=== PATIENT | male | born 1995 | race African-American/Black ===

== ENCOUNTER 2022-06-11 14:40 | Outpatient (CLI) | payer OTHER | END 2022-06-11 14:41 | disposition critical access hospital (66) | LOC: EMS 14:40 | DX: S51.812A Laceration without foreign body of left forearm, initial encounter (principal); X78.1XXA Intentional self-harm by knife, initial encounter | CPT/HCPCS: A0425; A0429 ==

== ENCOUNTER 2022-06-11 15:01 | Emergency (ER) | payer OTHER ==
[2022-06-11 15:34] LABS: BASOPHILS % (AUTO) 0.3 %; EOSINOPHILS % (AUTO) 0.3 %; HCT - HEMATOCRIT 42.9 % (42.0-52.0); HGB - HEMOGLOBIN 15.3 g/dL (14.0-18.0); LYMPHOCYTES # (AUTO) 1.9 10^3/uL (1.5-3.5); LYMPHOCYTES % (AUTO) 19.6 %; MEAN CORPUSCULAR HEMOGLOBIN 32.2 pg (27.0-31.0); MEAN CORPUSCULAR HGB CONC 35.7 g/dL (32.0-36.0); MEAN CORPUSCULAR VOLUME 90.3 fL (80.0-94.0); MEAN PLATELET VOLUME 8.6 fL (7.4-11.4); MONOCYTES # (AUTO) 0.5 10^3/uL (0.0-1.0); MONOCYTES % (AUTO) 5.5 %; NEUTROPHILS # (AUTO) 7.2 10^3/uL (1.5-6.6); PLT - PLATELET COUNT 316 10^3/uL (130-450); RED BLOOD COUNT 4.75 10^6/uL (4.70-6.10); RED CELL DISTRIBUTION WIDTH 13.8 % (12.0-15.0); WHITE BLOOD COUNT 9.7 x10^3/uL (4.8-10.8)
--- NOTE | 2022-06-11 15:41 | ED Physician Documentation ---
PD HPI MHE - Stated complaint Stated Complaint: DEPRESSION/CUTS ON FOREARM - Chief complaint Chief Complaint: MHE - History obtained from History obtained from: Patient, EMS - History of Present Illness Primary symptom: Self harm - cut Timing - onset: Today Pain level max: 0 Pain level now: 0 Contributing factors: No: Family, Sig other, Work, School, Money, Legal, Substance abuse - ETOH, Substance abuse - drugs, Off meds Recently seen: Not recently seen - Additional information Additional information: 27-year-old male presents to the emergency department Stating that he had an argument with his girlfriend and then cut his left wrist with a steak knife. He states he is not suicidal or homicidal. Has never attempted suicide. He states he "wants to talk to someone". Nothing makes it better or worse. He is currently in treatment for depression. Review of Systems Ten Systems: 10 systems reviewed and negative Constitutional: denies: Fever Respiratory: denies: Cough GI: denies: Vomiting, Diarrhea Skin: denies: Rash Musculoskeletal: denies: Neck pain, Back pain Neurologic: denies: Headache PD PAST MEDICAL HISTORY - Past Medical History Past Medical History: Yes Psych: Depression - Living Situation Living Arrangement: reports: At home - Social History Does the pt have substance abuse?: No PD ED PE NORMAL - Vitals Vital signs reviewed: Yes - General General: Alert and oriented X 3, No acute distress - HEENT HEENT: Moist mucous membranes - Neck Neck: Supple, no meningeal sign - Cardiac Cardiac: RRR - Respiratory Respiratory: No respiratory distress, Clear bilaterally - Abdomen Abdomen: Soft, Non tender, Non distended - Derm Derm: Warm and dry - Extremities Extremities: Other (Very superficial laceration to the volar aspect of the left wrist. Approximately 3 cm in length. NVI) - Neuro Neuro: Alert and oriented X 3 - Psych Psych: Normal mood, Normal affect Results - Vitals Vitals: Vital Signs - 24 hr 06/11/22 15:21 Temperature 36.7 C Heart Rate 92 Respiratory 16 Rate Blood Pressure 125/78 O2 Saturation 97 Oxygen O2 Source Room air - Labs Labs: Laboratory Tests 06/11/22 06/11/22 06/11/22 15:30 15:30 15:30 WBC 9.7 RBC 4.75 Hgb 15.3 Hct 42.9 MCV 90.3 MCH 32.2 H MCHC 35.7 RDW 13.8 Plt Count 316 MPV 8.6 Neut # (Auto) 7.2 H Lymph # (Auto) 1.9 [place] # (Auto) 0.5 Eos # (Auto) 0.0 Baso # (Auto) 0.0 Absolute Nucleated RBC 0.00 Nucleated RBC % 0.0 Sodium 138 Potassium 3.7 Chloride 104 Carbon Dioxide 24 Anion Gap 10.0 BUN 8 Creatinine 0.8 Estimated GFR (MDRD) 118 Glucose 100 Calcium 9.5 Total Bilirubin 0.8 AST 22 ALT 30 Alkaline Phosphatase 60 Total Protein 8.0 Albumin 4.4 Globulin 3.6 Albumin/Globulin Ratio 1.2 Lipase 22 TSH 3.21 Salicylates < 6.0 Acetaminophen < 10 L Ethyl Alcohol 18.2 PD MEDICAL DECISION MAKING - ED course Complexity details: reviewed results, re-evaluated patient, considered differential, d/w patient ED course: No acute findings on laboratory testing. Wound was cleansed and bandaged. Social work is not available currently. Offered telepsychiatry, patient does not want to wait for this. He states that he feels better after being in the emergency department for a while. He is forward thinking and goal oriented. He is able to contract for safety and feels safe at home tonight. His plan is to [place] PC[place] Patient was given information regarding the crisis line and encouraged to return if he worsens or starts to feel like he is going to harm himself again. Patient counseled regarding signs and symptoms for which I believe and urgent re- evaluation would be necessary. Patient with good understanding of and agreement to plan and is comfortable going home at this time This document was made in part using voice recognition software. While efforts are made to proofread this document, sound alike and grammatical errors may occur. Departure - Departure Disposition: 01 Home, Self Care Clinical Impression: Abrasion of wrist Qualifiers: Encounter type: initial encounter Laterality: left Qualified Code(s): S60.812A - Abrasion of left wrist, initial encounter Depression Qualifiers: Depression Type: unspecified Qualified Code(s): F32.A - Depression, unspecified Condition: Good Instructions: ED Depression Follow-Up: IGNACIO WOLF MD [Primary Care Provider] - Comments: [place] as [place] discussed. Please return if you worsen including thoughts of harming yourself or suicidal ideation. You can also contact the crisis line if you would like to talk to somebody. Crisis Line and is available to talk to someone [email or web address] is also available to chat with someone online if you prefer. There are also many resources on this website and apps for your phone to help with your mental health You can also text the word START to [phone] to chat with someome via text. Discharge Date/Time: 06/11/22 17:08
[2022-06-11 15:49] LABS: ACETAMINOPHEN < 10 ug/mL (10-30); ALBUMIN 4.4 g/dL (3.2-5.5); ALBUMIN/GLOBULIN RATIO 1.2 (1.0-2.2); ALKALINE PHOSPHATASE 60 IU/L (42-121); ALT ALANINE AMINOTRANSFERASE 30 IU/L (10-60); AST ASPARTATE AMINOTRANSFERASE 22 IU/L (10-42); BILIRUBIN,TOTAL 0.8 mg/dL (0.2-1.0); BUN - BLOOD UREA NITROGEN 8 mg/dL (6-20); CALCIUM 9.5 mg/dL (8.5-10.3); CARBON DIOXIDE - CO2 24 mmol/L (21-32); CHLORIDE 104 mmol/L (101-111); CREATININE 0.8 mg/dL (0.6-1.2); ETOH - ETHANOL 18.2 mg/dL; GFR - MDRD 118 (>89); GLUCOSE 100 mg/dL (70-100); LIPASE 22 U/L (22-51); POTASSIUM 3.7 mmol/L (3.5-5.0); SALICYLATE < 6.0 mg/dL; SODIUM 138 mmol/L (135-145)
[2022-06-11 15:54] VITALS: BP 125/78
== END 2022-06-11 17:08 | disposition home or self-care (01) ==
LOC: ED 15:01
DX: S61.512A Laceration without foreign body of left wrist, initial encounter (principal); W26.0XXA Contact with knife, initial encounter
CPT/HCPCS: 36415; 80053; 80307; 80320; 80329; 83690; 84443; 85025; 99283

== ENCOUNTER 2023-12-31 09:19 | Outpatient (CLI) | payer OTHER | END 2023-12-31 23:59 | disposition critical access hospital (66) | LOC: EMS 09:19 | DX: S51.811A Laceration without foreign body of right forearm, initial encounter (principal); X78.8XXA Intentional self-harm by other sharp object, initial encounter; Y92.009 Unspecified place in unspecified non-institutional (private) residence as the place of occurrence of the external cause; F10.90 Alcohol use, unspecified, uncomplicated | CPT/HCPCS: A0425; A0429 ==

== ENCOUNTER 2023-12-31 09:22 | Inpatient (IN) | payer OTHER ==
[2023-12-31 09:48] LABS: BASOPHILS % (AUTO) 0.2 %; EOSINOPHILS # (AUTO) 0.1 10^3/uL (0.0-0.7); EOSINOPHILS % (AUTO) 0.7 %; HGB - HEMOGLOBIN 14.3 g/dL (14.0-18.0); LYMPHOCYTES # (AUTO) 1.9 10^3/uL (1.5-3.5); MEAN CORPUSCULAR HEMOGLOBIN 32.4 pg (27.0-31.0); MEAN CORPUSCULAR HGB CONC 34.9 g/dL (32.0-36.0); MEAN CORPUSCULAR VOLUME 92.8 fL (80.0-94.0); MEAN PLATELET VOLUME 9.2 fL (7.4-11.4); MONOCYTES # (AUTO) 0.5 10^3/uL (0.0-1.0); MONOCYTES % (AUTO) 6.1 %; NEUTROPHILS % (AUTO) 69.8 %; PLT - PLATELET COUNT 307 10^3/uL (130-450); RED BLOOD COUNT 4.42 10^6/uL (4.70-6.10); RED CELL DISTRIBUTION WIDTH 12.7 % (12.0-15.0); WHITE BLOOD COUNT 8.5 x10^3/uL (4.8-10.8)
[2023-12-31 10:08] LABS: ALBUMIN 4.1 g/dL (3.2-5.5); ALBUMIN/GLOBULIN RATIO 1.5 (1.0-2.2); ALKALINE PHOSPHATASE 45 IU/L (42-121); ALT ALANINE AMINOTRANSFERASE 19 IU/L (10-60); AST ASPARTATE AMINOTRANSFERASE 21 IU/L (10-42); BILIRUBIN,TOTAL 0.4 mg/dL (0.2-1.0); BUN - BLOOD UREA NITROGEN 7 mg/dL (6-20); CALCIUM 9.3 mg/dL (8.5-10.3); CARBON DIOXIDE - CO2 23 mmol/L (21-32); CHLORIDE 97 mmol/L (101-111); CK- CREATINE KINASE 381 IU/L (30-223); CREATININE 1.2 mg/dL (0.6-1.3); ETOH - ETHANOL 232.9 mg/dL; GFR - MDRD 89 (>89); GLUCOSE 99 mg/dL (74-104); MAGNESIUM 1.7 mg/dL (1.7-2.3); POTASSIUM 3.3 mmol/L (3.5-4.5); SODIUM 132 mmol/L (135-145); TOTAL PROTEIN 6.9 g/dL (6.4-8.9)
[2023-12-31 10:13] LABS: ACETAMINOPHEN < 0.1 ug/mL; LIPASE < 10 U/L (11-82); SALICYLATE < 1.5 mg/dL
[2023-12-31 10:18] LABS: THYROID STIMULATING HORMONE 1.33 uIU/mL (0.34-5.60)
[2023-12-31] MEDS: SODIUM CHLORIDE 0.9% 1,000 ML IV STA ×2 (11:27→13:33)
[2023-12-31] MEDS: LIDOCAINE 1%-EPI 1:100000 20 ML MDV SUBQ STA (11:28)
[2023-12-31 11:52] LABS: HCT - HEMATOCRIT 39.4 % (42.0-52.0)
[2023-12-31 13:00] LABS: BILIRUBIN,URINE NEGATIVE (NEGATIVE); CLARITY,URINE CLEAR (CLEAR); GLUCOSE, URINE (UA) NEGATIVE (NEGATIVE); KETONES,URINE (UA) NEGATIVE (NEGATIVE); LEUKOCYTE ESTERASE, URINE NEGATIVE (NEGATIVE); NITRITE,URINE NEGATIVE (NEGATIVE); OCCULT BLOOD,URINE NEGATIVE (NEGATIVE); PROTEIN,URINE NEGATIVE (NEGATIVE); UROBILINOGEN,URINE 0.2 (NORMAL) E.U./dL (NORMAL)
--- NOTE | 2023-12-31 13:11 | ED Physician Documentation ---
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 Patient reportedly cut his right arm with a steak knife. He also reports drinking a lot of whiskey last night. He also intentionally ingested a propranolol 20 mg tablets at 3 AM today and it took approximately 59 tablets. 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 EMS found the patient in his Bed covered in blood. EMS removed the IV he had started and placed a new 1. Patient does not want to talk much about recent stressors but on repeat evaluation he does report from his recently and also not enjoying being in the [employer] or living here in [place]. He does have family back in [place]. He also has been seeing a counselor through the [employer] base. Review of Systems Cardiac: denies: Chest pain / pressure Respiratory: denies: Dyspnea GI: denies: Abdominal Pain Skin: reports: Laceration (s) PD PAST MEDICAL HISTORY - Past Medical History Past Medical History: Yes Psych: Depression, Anxiety - Past Surgical History Past Surgical History: No - Present Medications Home Medications: Ambulatory Orders Medication Instructions Recorded Confirmed Fluoxetine HCl [Prozac] 40 mg PO DAILY 12/31/23 12/31/23 Ondansetron Odt [Zofran Odt] 4 mg TL Q6H PRN 12/31/23 12/31/23 Propranolol HCl 20 mg PO DAILY 12/31/23 12/31/23 buPROPion HCL [Bupropion HCl] 300 mg PO DAILY 12/31/23 12/31/23 - Allergies Allergies/Adverse Reactions: Allergies Allergy/AdvReac Type Severity Reaction Status Date / Time No Known Drug Allergies Allergy Verified 12/31/23 09:29 - Social History Does the pt smoke?: No Smoking Status: Never smoker Does the pt drink ETOH?: Yes Does the pt have substance abuse?: No - Immunizations Immunizations are current?: Yes PD ED PE NORMAL - General General: Alert and oriented X 3, No acute distress, Well developed/nourished - HEENT HEENT: Atraumatic - Neck Neck: Supple, no meningeal sign - Cardiac Cardiac: RRR, Strong equal pulses - Respiratory Respiratory: No respiratory distress, Clear bilaterally - Abdomen Abdomen: Normal bowel sounds, Soft, Non tender, Non distended - Derm Derm: Warm and dry - Extremities Extremities: Other (10 cm laceration To right AC, deep, no signs of tendon injury, patient able to fully extend, flex, pronate and supinate with right arm, motor and sensation intact distally, good cap refill in all digits, no active bleeding) - Neuro Neuro: Alert and oriented X 3, No motor deficit, No sensory deficit, Normal speech - Psych Psych: No: Normal mood (Depressed, soft-spoken) Results - Vitals Vitals: Vital Signs - 24 hr 12/31/23 12/31/23 12/31/23 09:29 10:00 10:22 Temperature 36 C L Heart Rate 65 76 79 Respiratory 28 H 18 19 Rate Blood Pressure 108/74 131/108 H 117/82 H O2 Saturation 96 100 100 12/31/23 12/31/23 12/31/23 10:30 10:45 11:00 Temperature Heart Rate 74 72 72 Respiratory 19 17 16 Rate Blood Pressure 109/77 95/67 92/62 O2 Saturation 100 96 96 12/31/23 12/31/23 12/31/23 11:17 11:30 11:47 Temperature Heart Rate 78 80 79 Respiratory 14 20 16 Rate Blood Pressure 91/55 L 87/69 L 109/88 H O2 Saturation 95 97 99 12/31/23 12/31/23 12:12 12:42 Temperature 36.8 C Heart Rate 75 82 Respiratory 16 15 Rate Blood Pressure 125/79 103/86 H O2 Saturation 100 100 Oxygen O2 Source Room air - EKG (time done) 1011 EKG releavant findings:: EKG personally interpreted by author of this note. Relevant findings are: Rate 74, normal sinus rhythm, no STEMI, ST elevations in anterior lateral leads are likely benign early repolarization, T wave inversions in lead III, QTc 433, no prior for comparison - Labs Labs: Laboratory Tests 12/31/23 12/31/23 12/31/23 09:45 09:45 09:55 WBC 8.5 RBC 4.42 L Hgb 14.3 Hct 41.0 L MCV 92.8 MCH 32.4 H MCHC 34.9 RDW 12.7 Plt Count 307 MPV 9.2 Neut # (Auto) 6.0 Lymph # (Auto) 1.9 [place] # (Auto) 0.5 Eos # (Auto) 0.1 Baso # (Auto) 0.0 Absolute Nucleated RBC 0.00 Nucleated RBC % 0.0 Sodium 132 L Potassium 3.3 L Chloride 97 L Carbon Dioxide 23 Anion Gap 12.0 BUN 7 Creatinine 1.2 Estimated GFR (MDRD) 89 Glucose 99 Calcium 9.3 Magnesium 1.7 Total Bilirubin 0.4 AST 21 ALT 19 Alkaline Phosphatase 45 Total Creatine Kinase 381 H Total Protein 6.9 Albumin 4.1 Globulin 2.8 Albumin/Globulin Ratio 1.5 Lipase < 10 L TSH 1.33 Urine Color Urine Clarity Urine pH Ur Specific [place] Urine Protein Urine Glucose (UA) Urine Ketones Urine Occult Blood Urine Nitrite Urine Bilirubin Urine Urobilinogen Ur Leukocyte Esterase Ur Microscopic Review Urine Culture Comments Salicylates < 1.5 Urine Opiates Screen Ur Buprenorphine Scrn Ur Oxycodone Screen Urine Methadone Screen Acetaminophen < 0.1 Ur Barbiturates Screen Ur Tricyclics Screen Ur Phencyclidine Scrn Ur Amphetamine Screen U Methamphetamines Scrn U Benzodiazepines Scrn Urine Cocaine Screen U Cannabinoids Screen Ur Drug Screen Comment Ethyl Alcohol 232.9 SARS-CoV-2 (PCR) NOT DETECTED 12/31/23 12/31/23 11:45 12:45 WBC RBC Hgb 14.0 Hct 39.4 L MCV MCH MCHC RDW Plt Count MPV Neut # (Auto) Lymph # (Auto) [place] # (Auto) Eos # (Auto) Baso # (Auto) Absolute Nucleated RBC Nucleated RBC % Sodium Potassium Chloride Carbon Dioxide Anion Gap BUN Creatinine Estimated GFR (MDRD) Glucose Calcium Magnesium Total Bilirubin AST ALT Alkaline Phosphatase Total Creatine Kinase Total Protein Albumin Globulin Albumin/Globulin Ratio Lipase TSH Urine Color YELLOW Urine Clarity CLEAR Urine pH 6.0 Ur Specific [place] <=1.005 Urine Protein NEGATIVE Urine Glucose (UA) NEGATIVE Urine Ketones NEGATIVE Urine Occult Blood NEGATIVE Urine Nitrite NEGATIVE Urine Bilirubin NEGATIVE Urine Urobilinogen 0.2 (NORMAL) Ur Leukocyte Esterase NEGATIVE Ur Microscopic Review NOT INDICATED Urine Culture Comments NOT INDICATED Salicylates Urine Opiates Screen NEGATIVE Ur Buprenorphine Scrn NEGATIVE Ur Oxycodone Screen NEGATIVE Urine Methadone Screen NEGATIVE Acetaminophen Ur Barbiturates Screen NEGATIVE Ur Tricyclics Screen NEGATIVE Ur Phencyclidine Scrn NEGATIVE Ur Amphetamine Screen NEGATIVE U Methamphetamines Scrn NEGATIVE U Benzodiazepines Scrn NEGATIVE Urine Cocaine Screen NEGATIVE U Cannabinoids Screen NEGATIVE Ur Drug Screen Comment CUTOFF CONC BELOW: Ethyl Alcohol SARS-CoV-2 (PCR) Procedures - Laceration (location) R arm Length in cm: 10 Wound type: Linear Neurovascular status: Sensory intact, Motor intact, Vascular intact Tendon involvement: Tendon intact Anesthesia: Lidocaine 1% with epi Wound preparation: Hibiclens, Irrigated copiously NS Deep layer closure: Vicryl, size #-0 - enter number (4-0), # sutures - enter number (10) Skin layer closure: Interrupted, Size #-0 - enter number (3-0 Ethilon), Sutures - enter # (16) Other: Patient tolerated well, No complications, Neurovascular intact, Dressing applied, Tetanus UTD PD Medical Decision Making - ED course Complexity details: reviewed results, re-evaluated patient, d/w patient ED course: Patient is a 28-year-old male presenting for evaluation of Suicide attempt. Patient intentionally ingested a large amount of propranolol reportedly as well as injured himself with a large self-inflicted laceration to the right arm and also started his own IV in the left arm to drain the blood. On arrival patient was evaluated with mental health screening labs including EKG, CBC, chemistries, urinalysis, toxicology labs. Patient remained on the air sampling and monitoring with close check of his vital signs including heart rate and blood pressure. Large amount of time was spent in repair of right arm laceration.Over time patient's blood pressure was starting to read low with systolics being as low as in the 70s at 1 point. Patient had already received 1 L of fluids and was given a second liter of fluids. As his blood pressures were starting to drift into the 70s and 80s I do feel that he may need further monitoring before medical clearance. I discussed with Admitting hospitalist (Dr. Ceja) and he will admit patient to ICU for close monitoring. 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 Departure - Departure Disposition: 66 [facility] DC/Xfer Clinical Impression: Intentional overdose, Suicide attempt by beta rohith overdose, Laceration of right upper arm, Hypotension Condition: Fair Discharge Date/Time: 12/31/23 14:25
[2023-12-31 13:37] LABS: AMPHETAMINE SCREEN,URINE NEGATIVE (NEGATIVE); BARBITURATE SCREEN,UR NEGATIVE (NEGATIVE); BENZODIAZEPINES SCREEN, URINE NEGATIVE (NEGATIVE); BUPRENORPHINE SCREEN, URINE NEGATIVE (NEGATIVE); COCAINE SCREEN URINE NEGATIVE (NEGATIVE); METHADONE SCREEN, URINE NEGATIVE (NEGATIVE); METHAMPHETAMINES SCREEN, URINE NEGATIVE (NEGATIVE); OPIATE SCREEN, URINE NEGATIVE (NEGATIVE); OXYCODONE SCREEN, URINE NEGATIVE (NEGATIVE); THC CANNABINOID SCREEN, URINE NEGATIVE (NEGATIVE); TRICYCLIC ANTIDEPRESSANT,URINE NEGATIVE (NEGATIVE)
[2023-12-31] MEDS ORDERED: ONDANSETRON ODT 4 MG TABLET TL PRN (13:46)
[2023-12-31] MEDS ORDERED: SODIUM CHLORIDE FLUSH 0.9% 10 ML SYRINGE IVP PRN (13:46)
[2023-12-31] MEDS: IBUPROFEN 600 MG TABLET PO STA (14:12)
--- NOTE | 2023-12-31 14:12 | HISTORY & PHYSICAL EXAMINATION ---
Chief Complaint - Chief Complaint Chief Complaint: Beta rohith overdose History of Present Illness - Admitted From Admitted From:: ED - History Obtained From Records Reviewed: Yes History obtained from: Patient Exam Limitations: None - History of Present Illness HPI Comment/Other: Patient is a 28-year-old male with a past medical history of MDD/anxiety who presented to the ED after a suicide attempt. Patient drank a significant amount of whiskey last night and reportedly cut his right arm with a steak knife. He also ingested #59 20 mg propranolol tablets at 3 AM. Patient also started his own IV in his left AC which was draining blood. EMS found the patient in bed covered in blood. He reportedly has significant stressors in his life as he is from his recently and does not enjoy being in the [employer] or living in [place]. He does have family back in [place]. He sees a counselor through the [employer] base. During my evaluation patient appeared hemodynamically stable. He was mildly hypotensive but was maintaining a MAP greater than 65 on IV fluids. He denied any chest pain or shortness of breath. He was not having any lightheadedness or dizziness. Poison control was contacted and recommendations were given. He will be admitted to the ICU for monitoring over the next 24 hours. He will be placed on suicide precautions. She did not endorse any active suicidal ideation since he is sober. I did discuss alcohol use with him and he reports that he has had withdrawals in the past however no prior seizures. History - Past Medical History Psych: reports: Depression, Anxiety MRSA Hx?: No Meds/Allgy - Home Medications Home Medications: Ambulatory Orders Medication Instructions Recorded Confirmed Fluoxetine HCl [Prozac] 40 mg PO DAILY 12/31/23 12/31/23 Ondansetron Odt [Zofran Odt] 4 mg TL Q6H PRN 12/31/23 12/31/23 Propranolol HCl 20 mg PO DAILY 12/31/23 12/31/23 buPROPion HCL [Bupropion HCl] 300 mg PO DAILY 12/31/23 12/31/23 - Allergies Allergies/Adverse Reactions: Allergies Allergy/AdvReac Type Severity Reaction Status Date / Time No Known Drug Allergies Allergy Verified 12/31/23 09:29 Review of Systems - Psychiatric Psychiatric: denies: Suicidal, Homicidal - All Other Systems All Other Systems: reports: Reviewed and negative Exam - Vital Signs Reviewed Vital Signs: Yes Vital Signs: Vital Signs x48h Temp Pulse Resp BP Pulse Ox 12/31/23 12:42 36.8 C 82 15 103/86 H 100 12/31/23 12:12 75 16 125/79 100 12/31/23 11:47 79 16 109/88 H 99 12/31/23 11:30 80 20 87/69 L 97 12/31/23 11:17 78 14 91/55 L 95 12/31/23 11:00 72 16 92/62 96 12/31/23 10:45 72 17 95/67 96 12/31/23 10:30 74 19 109/77 100 12/31/23 10:22 79 19 117/82 H 100 12/31/23 10:00 76 18 131/108 H 100 12/31/23 09:29 36 C L 65 28 H 108/74 96 - Physical Exam General Appearance: positive: No acute distress, Alert Respiratory: positive: Chest non-tender, No respiratory distress, Breath sounds nml Cardiovascular: positive: Regular rate & rhythm, No murmur, No gallop Abdomen: positive: Non-tender, No organomegaly, Nml bowel sounds, No distention Skin: positive: Color nml, No rash, Warm, Dry Extremities: positive: Non-tender, Full ROM, Nml appearance Neurologic/Psychiatric: positive: Oriented x3, Mood/affect nml Conclusion/Plan - Problem List (1) Suicide attempt by beta rohith overdose Conclusion/Plan: -- Reportedly ingested number #59 20 mg propranolol at 3 AM.Poison control has been contacted and did make recommendations. --Patient will be monitored for hemodynamic collapse in the ICU. -- He has not yet required any glucagon, atropine, vasopressors. Patient is currently on normal saline. -- He was placed on suicide precautions. -- Anticipate discharge tomorrow if he remains hemodynamically stable to the care of psychiatry. (2) Laceration of right upper arm Conclusion/Plan: -- Laceration was repaired in the ED. - Lab Results Fish Bones: 12/31/23 11:45 12/31/23 09:45
[2023-12-31] MEDS: HYDROcod/ACETAM 5/325 MG TABLET PO STA (15:37)
[2023-12-31] MEDS: SODIUM CHLORIDE 0.9% 1,000 ML IV SCH (15:37)
[2023-12-31] MEDS: SODIUM CHLORIDE FLUSH 0.9% 10 ML SYRINGE IVP SCH (15:38)
[2023-12-31] MEDS: IBUPROFEN 800 MG TABLET PO PRN (20:50)
[2023-12-31] MEDS: FAMOTIDINE 20 MG TABLET PO SCH (20:50)
[2023-12-31] MEDS: POTASSIUM CHLORIDE 20 MEQ TABLET PO SCH (20:50)
[2023-12-31] MEDS: MAGNESIUM OXIDE 400 MG TABLET PO ONE (20:51)
[2024-01-01 04:29] LABS: BASOPHILS % (AUTO) 0.5 %; EOSINOPHILS # (AUTO) 0.1 10^3/uL (0.0-0.7); EOSINOPHILS % (AUTO) 0.7 %; HCT - HEMATOCRIT 29.2 % (42.0-52.0); HGB - HEMOGLOBIN 10.3 g/dL (14.0-18.0); LYMPHOCYTES # (AUTO) 1.7 10^3/uL (1.5-3.5); LYMPHOCYTES % (AUTO) 20.5 %; MEAN CORPUSCULAR HEMOGLOBIN 33.1 pg (27.0-31.0); MEAN CORPUSCULAR HGB CONC 35.3 g/dL (32.0-36.0); MEAN CORPUSCULAR VOLUME 93.9 fL (80.0-94.0); MONOCYTES # (AUTO) 0.9 10^3/uL (0.0-1.0); NEUTROPHILS # (AUTO) 5.5 10^3/uL (1.5-6.6); NEUTROPHILS % (AUTO) 66.6 %; PLT - PLATELET COUNT 197 10^3/uL (130-450); RED BLOOD COUNT 3.11 10^6/uL (4.70-6.10); RED CELL DISTRIBUTION WIDTH 12.9 % (12.0-15.0); WHITE BLOOD COUNT 8.3 x10^3/uL (4.8-10.8)
[2024-01-01 04:30] LABS: CALCIUM, IONIZED 1.14 mmol/L (1.15-1.33); VBG PH 7.362 (7.31-7.41)
[2024-01-01 04:49] LABS: CALCIUM 8.5 mg/dL (8.5-10.3); CREATININE 0.9 mg/dL (0.6-1.3); MAGNESIUM 1.7 mg/dL (1.7-2.3); PHOSPHORUS 3.3 mg/dL (2.5-5.0); POTASSIUM 3.6 mmol/L (3.5-4.5)
[2024-01-01] MEDS: MAGNESIUM OXIDE 400 MG TABLET PO ONE ×2 (07:06→12:06)
[2024-01-01] MEDS: POTASSIUM CHLORIDE 20 MEQ TABLET PO ONE ×2 (07:06→12:06)
--- NOTE | 2024-01-01 11:21 | PROVIDER PROGRESS NOTE ---
Assessment/Plan - Problem List (1) Suicide attempt by beta rohith overdose Assessment/Plan: (1) Suicide attempt by beta rohith overdose Conclusion/Plan: -- Reportedly ingested number #59 20 mg propranolol at 3 AM.Poison control has been contacted and did make recommendations. --Patient will be monitored for hemodynamic collapse in the ICU. -- He has not yet required any glucagon, atropine, vasopressors. -- He was placed on suicide precautions. -- BP remains low but stable today. Will continue to monitor. --EKGs have shown normal QRS. (2) Laceration of right upper arm Conclusion/Plan: -- Laceration was repaired in the ED. Dispo: Continue to monitor BP and HR in the ICU. Once stable, he can be discharged to [facility]. - Current Meds Current Meds: Current Medications Generic Name Dose Route Start Last Admin Trade Name Freq PRN Reason Stop Dose Admin Famotidine 20 mg 12/31/23 21:00 01/01/24 08:12 Famotidine 20 Mg Tablet PO 20 mg BID CHARLEEN Administration Ibuprofen 800 mg 12/31/23 15:17 01/01/24 08:13 Ibuprofen 800 Mg Tablet PO 800 mg TID PRN Administration PAIN 1-4 Sodium Chloride 10 ml 12/31/23 17:00 01/01/24 08:14 Sodium Chloride Flush 0.9% 10 Ml Syringe IVP 10 ml 0100,0900,1700 CHARLEEN Administration - Lab Result Fish Bone Diagrams: 01/01/24 04:18 01/01/24 04:18 - Additional Planning My Orders: My Active Orders 12/31/23 13:46 Activity Orders (ICU) [RC] Q2HR Daily Weight [RC] 0600 IO [RC] Q1HR Initiate Bowel Care Protocol [RC] QSHIFT Initiate ICU Electrolyte Prot. [RC] .protocol Initiate Line Care Protocol [RC] .protocol Initiate Personal Care Protoco [RC] .protocol Initiate Progressive Mobility Protocol [RC] 0800,1999 Ondansetron Odt [Zofran Odt] 4 mg TL Q6HR PRN Sodium Chloride Flush 0.9% [Normal Saline Flush 0.9%] 10 ml IVP PRN PRN Code Status [OTHERS] Routine Condition of Patient [OTHERS] Routine DVT Prophylaxis [OTHERS] Routine 12/31/23 13:51 Telemetry- [RC] Q4HR 12/31/23 13:52 Social Work Consult [CONS] Routine Suicide/MHE Safety Behavior Observation Q2H Suicide/MHE Safety Environmental Check [id number],Q15MX1,Q30MX1,[id number] 12/31/23 15:17 Ibuprofen [Motrin] 800 mg PO TID PRN 12/31/23 17:00 Sodium Chloride Flush 0.9% [Normal Saline Flush 0.9%] 10 ml IVP 0100,0900,1700 12/31/23 21:00 Famotidine [Pepcid] 20 mg PO BID 01/01/24 11:01 MAGNESIUM [CHEM] Timed POTASSIUM [CHEM] Timed 01/02/24 05:00 MAGNESIUM [CHEM] DAILYLAB Subjective - Subjective Patient Reports: Resting Comfortably, No Complaints Objective Vital Signs: Vital Signs - 24 hr 12/31/23 12/31/23 12/31/23 11:30 11:47 12:12 Temperature Heart Rate 80 79 75 Heart Rate [ Monitoring electrodes] Respiratory 20 16 16 Rate Blood Pressure 87/69 L 109/88 H 125/79 Blood Pressure [Left Brachial artery] O2 Saturation 97 99 100 12/31/23 12/31/23 12/31/23 12:42 14:26 16:00 Temperature 36.8 C 37.3 C Heart Rate 82 Heart Rate [ 81 83 Monitoring electrodes] Respiratory 15 25 H 19 Rate Blood Pressure 103/86 H Blood Pressure 126/106 H 95/50 L [Left Brachial artery] O2 Saturation 100 98 97 12/31/23 12/31/23 12/31/23 16:02 17:00 18:00 Temperature 37.0 C Heart Rate Heart Rate [ 79 75 78 Monitoring electrodes] Respiratory 14 16 12 Rate Blood Pressure Blood Pressure 83/73 L 93/50 L 96/66 [Left Brachial artery] O2 Saturation 96 98 97 12/31/23 12/31/23 12/31/23 19:00 20:00 21:00 Temperature 36.8 C Heart Rate Heart Rate [ 83 77 78 Monitoring electrodes] Respiratory 21 23 20 Rate Blood Pressure Blood Pressure 95/53 L 100/48 L 104/64 [Left Brachial artery] O2 Saturation 94 97 98 12/31/23 12/31/23 01/01/24 22:00 23:00 00:00 Temperature Heart Rate Heart Rate [ 73 75 66 Monitoring electrodes] Respiratory 19 18 17 Rate Blood Pressure Blood Pressure 98/62 103/51 L 97/43 L [Left Brachial artery] O2 Saturation 97 100 97 01/01/24 01/01/24 01/01/24 01:00 02:00 03:00 Temperature 36.8 C Heart Rate Heart Rate [ 71 58 L 78 Monitoring electrodes] Respiratory 19 18 18 Rate Blood Pressure Blood Pressure 100/49 L 94/41 L 94/51 L [Left Brachial artery] O2 Saturation 96 100 98 01/01/24 01/01/24 01/01/24 04:00 04:32 05:00 Temperature 36.3 C L Heart Rate Heart Rate [ 68 62 Monitoring electrodes] Respiratory 16 21 Rate Blood Pressure Blood Pressure 97/52 L 105/51 L [Left Brachial artery] O2 Saturation 98 99 01/01/24 01/01/24 01/01/24 06:00 06:49 08:00 Temperature 36.7 C Heart Rate Heart Rate [ 62 59 L 63 Monitoring electrodes] Respiratory 15 15 19 Rate Blood Pressure Blood Pressure 103/54 L 89/49 L 99/52 L [Left Brachial artery] O2 Saturation 99 97 99 01/01/24 01/01/24 01/01/24 09:00 10:00 11:00 Temperature 36.8 C Heart Rate Heart Rate [ 73 73 70 Monitoring electrodes] Respiratory 21 21 22 Rate Blood Pressure Blood Pressure 102/44 L 94/53 L 107/55 L [Left Brachial artery] O2 Saturation 100 98 98 Oxygen O2 Source Room air I&O (Last 24 Hrs): Intake and Output Totals x24h 12/30/23 12/31/23 01/01/24 23:59 23:59 23:59 Intake Total 2080 2313 Output Total 0 450 Balance 0 1863 General: Alert, Oriented x3, Cooperative, No acute distress Neuro: Alert, CN 2-12 Grossly Intact, Oriented Times 3 Cardiovascular: Regular rate, Normal S1, Normal S2, No murmurs Respiratory: Chest non-tender, No respiratory distress, Breath sounds nml Abdomen: Normal bowel sounds, Soft, No tenderness, No hepatospenomegaly, No masses - Results Results: Laboratory Results WBC 8.3 x10^3/uL (4.8-10.8) 01/01/24 04:18 RBC 3.11 10^6/uL (4.70-6.10) L 01/01/24 04:18 Hgb 10.3 g/dL (14.0-18.0) L 01/01/24 04:18 Hct 29.2 % (42.0-52.0) L 01/01/24 04:18 MCV 93.9 fL (80.0-94.0) 01/01/24 04:18 MCH 33.1 pg (27.0-31.0) H 01/01/24 04:18 MCHC 35.3 g/dL (32.0-36.0) 01/01/24 04:18 RDW 12.9 % (12.0-15.0) 01/01/24 04:18 Plt Count 197 10^3/uL (130-450) 01/01/24 04:18 MPV 9.0 fL (7.4-11.4) 01/01/24 04:18 Neut # (Auto) 5.5 10^3/uL (1.5-6.6) 01/01/24 04:18 Lymph # (Auto) 1.7 10^3/uL (1.5-3.5) 01/01/24 04:18 Cloud # (Auto) 0.9 10^3/uL (0.0-1.0) 01/01/24 04:18 Eos # (Auto) 0.1 10^3/uL (0.0-0.7) 01/01/24 04:18 Baso # (Auto) 0.0 10^3/uL (0.0-0.1) 01/01/24 04:18 Absolute Nucleated RBC 0.00 x10^3/uL 01/01/24 04:18 Nucleated RBC % 0.0 /100WBC 01/01/24 04:18 VBG pH 7.362 (7.31-7.41) 01/01/24 04:18 Ionized Calcium 1.14 mmol/L (1.15-1.33) L 01/01/24 04:18 Sodium 136 mmol/L (135-145) 01/01/24 04:18 Potassium 3.6 mmol/L (3.5-4.5) 01/01/24 04:18 Chloride 106 mmol/L (101-111) 01/01/24 04:18 Carbon Dioxide 26 mmol/L (21-32) 01/01/24 04:18 Anion Gap 4.0 (6-13) L 01/01/24 04:18 BUN 9 mg/dL (6-20) 01/01/24 04:18 Creatinine 0.9 mg/dL (0.6-1.3) 01/01/24 04:18 Estimated GFR (MDRD) 124 (>89) 01/01/24 04:18 Glucose 90 mg/dL (74-104) 01/01/24 04:18 Calcium 8.5 mg/dL (8.5-10.3) 01/01/24 04:18 Phosphorus 3.3 mg/dL (2.5-5.0) 01/01/24 04:18 Magnesium 1.7 mg/dL (1.7-2.3) 01/01/24 04:18 Total Bilirubin 0.4 mg/dL (0.2-1.0) 12/31/23 09:45 AST 21 IU/L (10-42) 12/31/23 09:45 ALT 19 IU/L (10-60) 12/31/23 09:45 Alkaline Phosphatase 45 IU/L (42-121) 12/31/23 09:45 Total Creatine Kinase 381 IU/L (30-223) H 12/31/23 09:45 Total Protein 6.9 g/dL (6.4-8.9) 12/31/23 09:45 Albumin 4.1 g/dL (3.2-5.5) 12/31/23 09:45 Globulin 2.8 g/dL (2.1-4.2) 12/31/23 09:45 Albumin/Globulin Ratio 1.5 (1.0-2.2) 12/31/23 09:45 Lipase < 10 U/L (11-82) L 12/31/23 09:45 TSH 1.33 uIU/mL (0.34-5.60) 12/31/23 09:45 Urine Color YELLOW 12/31/23 12:45 Urine Clarity CLEAR (CLEAR) 12/31/23 12:45 Urine pH 6.0 PH (5.0-7.5) 12/31/23 12:45 Ur Specific Russell <=1.005 (1.002-1.030) 12/31/23 12:45 Urine Protein NEGATIVE mg/dL (NEGATIVE) 12/31/23 12:45 Urine Glucose (UA) NEGATIVE mg/dL (NEGATIVE) 12/31/23 12:45 Urine Ketones NEGATIVE mg/dL (NEGATIVE) 12/31/23 12:45 Urine Occult Blood NEGATIVE (NEGATIVE) 12/31/23 12:45 Urine Nitrite NEGATIVE (NEGATIVE) 12/31/23 12:45 Urine Bilirubin NEGATIVE (NEGATIVE) 12/31/23 12:45 Urine Urobilinogen 0.2 (NORMAL) E.U./dL (NORMAL) 12/31/23 12:45 Ur Leukocyte Esterase NEGATIVE (NEGATIVE) 12/31/23 12:45 Ur Microscopic Review NOT INDICATED 12/31/23 12:45 Urine Culture Comments NOT INDICATED 12/31/23 12:45 Nasal Screen MRSA (PCR) NEGATIVE (NEGATIVE) 12/31/23 14:40 Salicylates < 1.5 mg/dL 12/31/23 09:45 Urine Opiates Screen NEGATIVE (NEGATIVE) 12/31/23 12:45 Ur Buprenorphine Scrn NEGATIVE (NEGATIVE) 12/31/23 12:45 Ur Oxycodone Screen NEGATIVE (NEGATIVE) 12/31/23 12:45 Urine Methadone Screen NEGATIVE (NEGATIVE) 12/31/23 12:45 Acetaminophen < 0.1 ug/mL 12/31/23 09:45 Ur Barbiturates Screen NEGATIVE (NEGATIVE) 12/31/23 12:45 Ur Tricyclics Screen NEGATIVE (NEGATIVE) 12/31/23 12:45 Ur Phencyclidine Scrn NEGATIVE (NEGATIVE) 12/31/23 12:45 Ur Amphetamine Screen NEGATIVE (NEGATIVE) 12/31/23 12:45 U Methamphetamines Scrn NEGATIVE (NEGATIVE) 12/31/23 12:45 U Benzodiazepines Scrn NEGATIVE (NEGATIVE) 12/31/23 12:45 Urine Cocaine Screen NEGATIVE (NEGATIVE) 12/31/23 12:45 U Cannabinoids Screen NEGATIVE (NEGATIVE) 12/31/23 12:45 Ur Drug Screen Comment CUTOFF CONC BELOW: 12/31/23 12:45 Ethyl Alcohol 232.9 mg/dL 12/31/23 09:45 SARS-CoV-2 (PCR) NOT DETECTED 12/31/23 09:55
[2024-01-01 11:25] LABS: MAGNESIUM 1.8 mg/dL (1.7-2.3); POTASSIUM 3.9 mmol/L (3.5-4.5)
--- NOTE | 2024-01-01 12:46 | Discharge Plan ---
Discharge Plan Problem Reviewed?: Yes Disposition: 65 Psych Hosp/Unit DC/Xfer Condition: Good Diet: Regular Activity Restrictions: No Restrictions Shower Restrictions: No No Smoking: If you smoke, Please STOP! Call for help.
--- NOTE | 2024-01-01 12:51 | DISCHARGE SUMMARY ---
Discharge Summary Admit Date: 12/31/23 Discharge Date: 01/01/24 Discharging Provider: Tanmay Ceja Primary Care Provider: Aguila Torres Code Status: Attempt Resuscitation Condition at Discharge: Good Discharge Disposition: 65 Psych Hosp/Unit DC/Xfer Discharge Facility Name: [facility] History of Present Illness: Patient is a 28-year-old male with a past medical history of MDD/anxiety who presented to the ED after a suicide attempt. Patient drank a significant amount of whiskey last night and reportedly cut his right arm with a steak knife. He also ingested #59 20 mg propranolol tablets at 3 AM. Patient also started his own IV in his left AC which was draining blood. EMS found the patient in bed covered in blood. He reportedly has significant stressors in his life as he is from his recently and does not enjoy being in the [facility] or living in [place]. He does have family back in [place]. He sees a counselor through the [facility] base. During my evaluation patient appeared hemodynamically stable. He was mildly hypotensive but was maintaining a MAP greater than 65 on IV fluids. He denied any chest pain or shortness of breath. He was not having any lightheadedness or dizziness. Poison control was contacted and recommendations were given. He will be admitted to the ICU for monitoring over the next 24 hours. He will be placed on suicide precautions. She did not endorse any active suicidal ideation since he is sober. I did discuss alcohol use with him and he reports that he has had withdrawals in the past however no prior seizures. - HOSPITAL COURSE Hospital Course: Patient is a 28-year-old male who presented to the ED after a suicide attempt as described above. Patient was admitted to the ICU and monitored overnight. He remained hemodynamically stable without requiring any additional medications outside of IV fluids for approximately 10 hours. Patient was able to maintain a MAP above 65 for the entire duration of his hospitalization. He had multiple EKGs performed and maintained a QRS under 110. Patient was deemed medically stable. He was discharged to [facility] for psychiatric treatment. All of his home psychiatric medications were held during this admission. Of note, he does have sutures in his right arm from a self-inflicted laceration. His sutures can be removed after January 09. - ALLERGIES Allergies/Adverse Reactions: Allergies Allergy/AdvReac Type Severity Reaction Status Date / Time No Known Drug Allergies Allergy Verified 12/31/23 09:29 - PHYSICAL EXAM AT DISCHARGE General Appearance: positive: No acute distress, Alert Respiratory: positive: Chest non-tender, No respiratory distress, Breath sounds nml Cardiovascular: positive: Regular rate & rhythm, No murmur, No gallop Extremities: positive: Non-tender, No pedal edema Neurologic/Psychiatric: positive: Oriented x3, CN's nml (2-12) - LABS Result Diagrams: 01/01/24 04:18 01/01/24 11:01 - TIME SPENT Time Spent in Discharge (Minutes): 30
[2024-01-01 16:09] VITALS: O2SAT 100
[2024-01-01 16:09] LABS: MAGNESIUM 1.8 mg/dL (1.7-2.3); POTASSIUM 4.2 mmol/L (3.5-4.5)
[2024-01-01 18:07] VITALS: BP 112/67
== END 2024-01-01 18:28 | DRG 909 ==
LOC: EDUNIT# → ED 09:22 → UNDOADMIN 13:46 → ICU 13:46
PROVIDERS: ADMIT Family Medicine; ATTEND Family Medicine
PROC: 0JQG0ZZ Repair Right Lower Arm Subcutaneous Tissue and Fascia, Open Approach (ICD-10-PCS; principal; 2023-12-31)
DX: T44.7X2A Poisoning by beta-adrenoreceptor antagonists, intentional self-harm, initial encounter (principal); F32.9 Major depressive disorder, single episode, unspecified; F41.9 Anxiety disorder, unspecified; I95.9 Hypotension, unspecified; S41.111A Laceration without foreign body of right upper arm, initial encounter; X78.1XXA Intentional self-harm by knife, initial encounter; R94.31 Abnormal electrocardiogram [ECG] [EKG]; Z11.52 Encounter for screening for COVID-19; Z63.5 Disruption of family by separation and divorce; Z79.899 Other long term (current) drug therapy; Z91.85 Personal history of military service
CPT/HCPCS: 12004; 36415; 80048; 80053; 80143; 80179; 80306; 81003; 82077; 82330; 82550; 83690; 83735; 84100; 84132; 84443; 85014; 85018; 85025; 87150; 87635; 93005; 99283; 99285; A9270; 81001; 82310; 87086

== ENCOUNTER 2024-05-04 08:38 | Emergency (ER) | payer OTHER ==
[2024-05-04 09:01] VITALS: BP 112/63; O2SAT 98
--- NOTE | 2024-05-04 09:46 | ED Physician Documentation ---
PD HPI BACK PAIN - Stated complaint Stated Complaint: RT SIDE OF BACK TIGHT - Chief complaint Chief Complaint: Back Pain - History obtained from History obtained from: Patient - History of Present Illness Timing - onset: Today Timing - duration: Hours Timing - details: Abrupt onset, Still present, Waxing and waning Location: Lower, Right Quality: Pain, Spasm, Aching Associated symptoms: No: Fever, Weakness, Numbness Worsened by: Movement Contributing factors: Trauma (he had his PRT testing today, so pushups, pullups, planks and then quick running. He started with some back pain during planks and got pain and spasms during and after the running. No fall nor abrupt twist/injury, but feeling muscle spasms. referred from PRT testing area to ER.) Similar symptoms before: Has not had sx before (he states he has not been working out regularly so feels it is strained muscle. Had not been ill otherwise recently. Worse with ROM and tender in muscle so does not feel it is kidney stone or such, that he has had once before.) Review of Systems Constitutional: denies: Fever, Chills Nose: reports: Congestion. denies: Rhinorrhea / runny nose Throat: denies: Sore throat Respiratory: reports: Wheezing (he has noted wheezing with exercise and had notable wheezing/dyspnea with the running today.) GI: denies: Vomiting, Diarrhea PD PAST MEDICAL HISTORY - Past Medical History Past Medical History: Yes Cardiovascular: None Respiratory: None, Other (he denies ongoing asthma; had it when child/teen. ) Neuro: None Endocrine/Autoimmune: None GI: None : None HEENT: None Psych: Depression, Anxiety Musculoskeletal: None Derm: None - Past Surgical History Past Surgical History: No - Present Medications Home Medications: Ambulatory Orders Medication Instructions Recorded Confirmed ARIPiprazole [Abilify] 5 mg PO DAILY 05/04/24 05/04/24 Albuterol Sulf [Ventolin Hfa 2 - 3 puffs INH Q4HR PRN #1 each 05/04/24 Inhaler] Escitalopram [Lexapro] 20 mg PO DAILY 05/04/24 05/04/24 Meloxicam [Mobic] 7.5 mg PO BID 10 Days #20 tablet 05/04/24 buPROPion [Wellbutrin Xl] 150 mg ORAL DAILY 05/04/24 05/04/24 busPIRone [Buspar] 5 mg PO TID 05/04/24 05/04/24 methocarbamoL [Robaxin] 500 mg PO Q8H PRN #20 tablet 05/04/24 traZODone [Desyrel] 50 mg PO HS PRN 05/04/24 05/04/24 - Allergies Allergies/Adverse Reactions: Allergies Allergy/AdvReac Type Severity Reaction Status Date / Time No Known Drug Allergies Allergy Verified 05/04/24 08:51 - Social History Does the pt smoke?: No Smoking Status: Never smoker Does the pt drink ETOH?: No Does the pt have substance abuse?: No - Immunizations Immunizations are current?: Yes - POLST Patient has POLST: No PD ED PE NORMAL - Vitals Vital signs reviewed: Yes - General General: Alert and oriented X 3, No acute distress (he states pain has lessened since being to ED. ), Well developed/nourished - Cardiac Cardiac: RRR, No murmur - Respiratory Respiratory: No respiratory distress. No: Clear bilaterally (no coarse sounds. Has exp wheezing noted diffusely. He denies ongoing asthma. ) - Abdomen Abdomen: Normal bowel sounds, Soft, Non tender - Back Back: No spinal TTP (but is tender in lower lumbar muscle right side. ) - Derm Derm: Normal color, Warm and dry - Neuro Neuro: Alert and oriented X 3, No motor deficit, No sensory deficit Results - Vitals Vitals: Vital Signs - 24 hr 05/04/24 08:52 Temperature 36.7 C Heart Rate 101 H Respiratory 18 Rate Blood Pressure 112/63 O2 Saturation 98 Oxygen O2 Source Room air PD Medical Decision Making - ED course Complexity details: reviewed results (no indication for imaging by history and exam. ), considered differential (brisk exercise today and developed lower back muscle spasming and pain. Hurting with ROM and tender muscles, so not sounding renal. Has some wheezing/environmental allergies and the extra work of breathing may have overworked diaphragmatic anchoring back muscles along with the plank/running exercise), d/w patient (consider early viral illness or such as well, to see over next few days, given some congestion and wheezing, may not be environmental allergies, and more likley for muscle pains with early illness. ) Departure - Departure Disposition: 01 Home, Self Care Clinical Impression: Lumbar paraspinal muscle spasm, Wheezing, Exercise induced bronchospasm Condition: Stable Instructions: ED Spasm Back No Trauma Follow-Up: [facility] Steiner [Provider Group] Prescriptions: Albuterol Sulf [Ventolin Hfa Inhaler] 2 - 3 puffs INH Q4HR PRN #1 each PRN Reason: Shortness Of Air/Wheezing Meloxicam [Mobic] 7.5 mg PO BID 10 Days #20 tablet methocarbamoL [Robaxin] 500 mg PO Q8H PRN #20 tablet PRN Reason: Spasms Comments: Rest today with heat and gentle stretching for the back. I would suggest some anti-inflammatories regularly twice daily for the next several days to week or so to reduce the amount of subsequent pain and spasming. Add Tylenol every 4-6 hours if needed. Methocarbamol muscle relaxant if needed for spasms and stiffness. Off duty today. Heat and gentle stretching. He also have notable wheezing. In this could be related to environmental allergies or exercise-induced. Use the albuterol inhaler 2 puffs 4 times daily if for the next few days and then as needed. I would also suggest trying it about 20 or 30 minutes before activity/exercise and see if that allows better tolerance. I sent your prescriptions to the [facility] pharmacy. Forms: Activity restrictions Discharge Date/Time: 05/04/24 11:12
[2024-05-04] MEDS: methocarbamoL 500 MG TABLET PO STA (10:51)
[2024-05-04] MEDS: IBUPROFEN 800 MG TABLET PO STA (10:51)
[2024-05-04] MEDS: ACETAMINOPHEN 500 MG TABLET PO STA (10:51)
[2024-05-04] MEDS: ALBUTEROL 1 PUFF INH STA (11:04)
== END 2024-05-04 11:12 | disposition home or self-care (01) ==
LOC: ED 08:38
DX: M62.830 Muscle spasm of back (principal); J45.990 Exercise induced bronchospasm
CPT/HCPCS: 94640; 94664; 99283; A9270

== ENCOUNTER 2024-05-21 08:30 | Outpatient (CLI) | payer OTHER ==
[2024-05-21 15:47] LABS: CHLAMYDIA TRACHOMATIS DNA NEGATIVE (NEGATIVE); NEISSERIA GONORRHOEAE DNA NEGATIVE (NEGATIVE); TRICHOMONAS VAGINALIS DNA NEGATIVE (NEGATIVE)
[2024-05-22 01:08] LABS: HIV SCREEN 4TH GENERATION Non Reactive (Non Reactive)
[2024-05-22 02:09] LABS: HSV 2 IGG TYPE SPEC <0.91 index (0.00-0.90)
[2024-05-22 06:11] LABS: RPR Non Reactive (Non Reactive)
[2024-05-22 23:09] LABS: HCV AB Non Reactive (Non Reactive)
== END 2024-05-21 08:45 | disposition home or self-care (01) ==
LOC: LAB.N 08:30
PROVIDERS: ATTEND Physician Assistant Medical
DX: Z11.3 Encounter for screening for infections with a predominantly sexual mode of transmission (principal)
CPT/HCPCS: 36415; 86592; 86695; 86696; 86803; 87389; 87491; 87591; 87661

== ENCOUNTER 2024-05-29 08:18 | Outpatient (CLI) | payer OTHER ==
--- NOTE | 2024-05-29 11:21 | MRI Report ---
PROCEDURE: Knee LT WO INDICATIONS: L KNEE PAIN TECHNIQUE: Noncontrast sagittal PD fast spin echo and T2 fast spin echo with fat saturation, sagittal 3-D gradie nt sequence with fat saturation; coronal T1 spin echo and PD fast spin echo with fat saturation, and axial PD fast spin echo with fat saturation through the knee. COMPARISON: None. FINDINGS: Image quality: Excellent. Bones: The bone marrow signal is normal. There is no acute fracture or dislocation. Joints: There is no significant knee joint effusion. There is no significant knee osteoarthritis. Og's cyst: None. Menisci: The medial meniscus is normal. The lateral meniscus is normal. The posterior root attachmen ts are normal. Cruciate ligaments: The anterior cruciate ligament is normal. The posterior cruciate ligament is norm al. Collateral ligaments: The medial collateral ligament complex is normal. The lateral collateral ligame nt complex is normal. Popliteus Muscle/Tendon: The popliteus muscle and tendon are normal. Extensor mechanism: The quadriceps tendon is normal. The patellar tendon is normal. The medial and la teral patellar retinacular attachments are normal. Articular cartilage: Partial-thickness chondral fissuring and surface fibrillation is present at the femoral trochlea (3/16). Mild surface fibrillation is present at the inferior articular cartilage of the patella (3/11). Other: There is a small subcentimeter ganglion cyst posteriorly medial to the proximal posterior cruc iate ligament (3/24). IMPRESSION: Mild chondromalacia of the patellofemoral compartment. Otherwise, normal MR exam of the left knee. Reviewed by: Manuel Mathew MD on 05/29/2024 11:20 AM PDT Approved by: Manuel Mathew MD on 05/29/2024 11:20 AM PDT Station ID: [id number]
== END 2024-05-29 08:19 | disposition home or self-care (01) ==
LOC: DI 08:18
PROVIDERS: ATTEND Physician Assistant
DX: M94.262 Chondromalacia, left knee (principal)